=== PATIENT | female | born 1985 | race African-American/Black ===

== ENCOUNTER → 2016-08-04 | Emergency (ER) | payer OTHER ==
[~2016-08-04] VITALS: Ht 167.6 cm; Wt 72.6 kg
[~2016-08-04] MED LIST: ALBUTEROL SULF8.5 GM INH; BUSPAR10 MG ORAL; IBUPROFEN600 MG ORAL; LORazepam 0.5mg tab ORAL ONE; LORazepam 1mg tab ORAL ONE; NKM; PREDNISONE10 MG ORAL
[2016-08-04 12:29] VITALS: BP 101/67
--- NOTE | 2016-08-04 13:11 | Emergency Room Report ---
History of Present Illness General Chief Complaint: General Complaint Source: Patient Present Illness HPI 31 YO Female presents to the ED c/o SOB s/p smoking weed. pt. reports intermitted episodes x 1 week with cough and heightened anxiety. Denies nausea, vomiting, fevers, chills, history of cardiac disease, productive cough, neck pain or stiffness. reports hx of intermittent anxiety, not currently on medications. Denies CP, Palpitations, LOC, AMS, dizziness, Changes in Vision, Sensation, paresthesias, or a sudden severe headache. Allergies: Coded Allergies: No Known Allergies (Unverified , 07/29/13) Patient History Past Medical History: see triage record Past Surgical History: none Pertinent Family History: none Last Menstrual Period: 07/19/16 Now: No Immunizations: UTD Reviewed Nursing Documentation: PMH: Agreed, PSxH: Agreed Nursing Documentation-PMH Past Medical History: No Stated History Review of Systems All Other Systems: negative except mentioned in HPI Physical Exam Vital Signs Date Time Temp Pulse Resp B/P Pulse Ox O2 Delivery O2 Flow Rate FiO2 08/04/16 12:20 97.9 66 16 101/67 100 Room Air Sp02 EP Interpretation: reviewed, normal General Appearance: no apparent distress, alert, GCS 15, non-toxic Head: normocephalic, atraumatic Eyes: bilateral eye PERRL, bilateral eye normal inspection ENT: hearing grossly normal, normal pharynx, no angioedema, normal voice Neck: full range of motion, supple/symm/no masses Respiratory: chest non-tender, lungs clear, normal breath sounds, speaking full sentences, wheezing - scant expiratory wheezes Cardiovascular #1: regular rate, rhythm, no edema, normal capillary refill Musculoskeletal: back normal, gait/station normal, normal range of motion, non- tender Neurologic: alert, oriented x3, responsive, motor strength/tone normal, sensory intact, speech normal Psychiatric: judgement/insight normal, memory normal, mood/affect normal, anxious Skin: normal color, no rash, warm/dry, well hydrated Lymphatic: no adenopathy Medical Decision Making PA Attestation Dr. Pino is my supervising Physician whom patient management has been discussed with. Diagnostic Impression: Primary Impression: Stress reaction, emotional Additional Impression: Wheezing without diagnosis of asthma ER Course Pt. presents to the ED c/o SOB s/p smoking weed. pt. reports intermitted episodes x 1 week with cough and heightened anxiety. Ddx considered but are not limited to anxiety, [place], PE, asthma, Vital signs: are WNL, pt. is afebrile H&PE are most consistent with anxiety / emotional reaction and mild asthma CURES: report shows pt. has had several rx's in the last 6 months for small quantities of ativan. ORDERS: none required at this time, the diagnosis is clinical ED INTERVENTIONS: - 0.5 g Ativan PO - Gave pt. [facility] information. d/w pt. to follow up with pcp or [facility] for further evaluation and medication management of anxiety. DISCHARGE: At this time pt. is stable for d/c to home. Will provide printed patient care instructions, and any necessary prescriptions. Care plan and follow up instructions have been discussed with the patient prior to discharge. Last Vital Signs Date Time Temp Pulse Resp B/P Pulse Ox O2 Delivery O2 Flow Rate FiO2 08/04/16 12:29 97.9 16 101/67 100 Room Air 08/04/16 12:20 66 Disposition: HOME, SELF-CARE Condition: Stable Scripts Prednisone* (PREDNISONE*) 10 Mg Tablet 10 MG ORAL DAILY for 5 Days, #5 TAB 0 Refills Prov: Anita Giron 08/04/16 Albuterol Sulfate* (ALBUTEROL SULFATE MDI*) 8.5 Gm Hfa.aer.ad 2 PUFF INH Q3H, #1 INH 0 Refills Prov: Anita Giron.[email or web address] 08/04/16 Buspirone Hcl* (BUSPAR*) 10 Mg Tablet 10 MG ORAL THREE TIMES A DAY for 5 Days, #15 TAB 0 Refills Prov: Anita GironA. 08/04/16 Patient Instructions: Medical Screening Exam Additional Instructions: Take medications as directed. Follow up with PCP in 3-5 days Return sooner to ED if new symptoms occur, or current symptoms become worse. Review provided information for [facility] mental health urgent care - Please note that this Emergency Department Report was dictated using [employer] setter technology software, occasionally this can lead to erroneous entry secondary to interpretation by the dictation equipment. Anita Giron August 04, 2016 13:11
== END | disposition home or self-care (01) ==
LOC: EMR 13:30
DX: F43.9 Reaction to severe stress, unspecified (principal); R06.2 Wheezing; R05 Cough
CPT/HCPCS: 99284

== ENCOUNTER 2017-07-30 16:07 | Emergency (ER) | payer MEDICAID, OTHER ==
[~2017-07-30] VITALS: Ht 167.6 cm; Wt 77.1 kg
[~2017-07-30 16:07] MED LIST changes: -LORazepam 0.5mg tab ORAL ONE; -LORazepam 1mg tab ORAL ONE
[2017-07-30 16:10] VITALS: BP 132/78
--- NOTE | 2017-07-30 16:28 | Emergency Room Report ---
History of Present Illness General Chief Complaint: General Complaint Source: Patient Present Illness HPI 32-year-old female presents to the emergency department complaining of 8 out of 10 in severity localized right anterior chest pain times one year. Patient reports she has had multiple emergency department visits, specialist evaluations with toll service observer and cutter head sharpener. All who have which found no significant problems. Patient states that she has been treated with acid reflux medications as well as allergy medications recently for her symptoms. Patient states that she also has taken ibuprofen in the past. Patient reports that she notices her pain several times a day and most notably at nighttime when she is lying down. Patient denies lower extremity edema, personal or familial history of cardiac disease. She denies recent travel, or prolonged periods of being sedentary. Denies claudication, cough, fevers, chills. She states she works out regularly. Denies CP, Palpitations, LOC, AMS, dizziness, Changes in Vision, Sensation, paresthesias, or a sudden severe headache. Denies abdominal pain, nausea or vomiting. She reports previous history of marijuana smoking for which she states she has stopped. Patient denies asthma or history of bronchitis. Reports history of anxiety. Allergies: Coded Allergies: No Known Allergies (Unverified , 07/29/13) Patient History Past Medical History: see triage record Past Surgical History: none Pertinent Family History: none Last Menstrual Period: 07/25/17 Reviewed Nursing Documentation: PMH: Agreed; PSxH: Agreed Nursing Documentation-PMH Past Medical History: No Stated History Review of Systems All Other Systems: negative except mentioned in HPI Physical Exam Vital Signs Date Time Temp Pulse Resp B/P (MAP) Pulse Ox O2 Delivery O2 Flow Rate FiO2 07/30/17 16:12 98.2 82 18 135/86 99 Room Air 98.2 Sp02 EP Interpretation: reviewed, normal General Appearance: alert, GCS 15, non-toxic, mild distress - Pt. becomes very tearful and worried durring hPI and ROS questions. Head: normocephalic, atraumatic ENT: hearing grossly normal, normal voice Neck: full range of motion Respiratory: lungs clear, normal breath sounds, no respiratory distress, no accessory muscle use, no wheezing, speaking full sentences, other - some mild reproducible ttp to the anterior right chest. Cardiovascular #1: regular rate, rhythm, no edema, normal capillary refill, bradycardia Musculoskeletal: back normal, gait/station normal, normal range of motion, non- tender Neurologic: alert, oriented x3, responsive, motor strength/tone normal, sensory intact, speech normal, grossly normal Psychiatric: judgement/insight normal, anxious - Patient presents abnormally anxiousness, with many questions most of which are similar in nature. She verbalizes apprehension of being told she had normal exams by specialist as well as her PCP. Patient has history of anxiety Skin: normal color, warm/dry, well hydrated Medical Decision Making PA Attestation Dr. Marcano is my supervising Physician whom patient management has been discussed with. Diagnostic Impression: Primary Impression: Nonspecific chest pain Additional Impression: Right-sided chest wall pain ER Course 32-year-old female presents to the emergency department complaining of 8 out of 10 in severity localized right anterior chest pain times one year. Patient reports she has had multiple emergency department visits, specialist evaluations with toll service observer and cutter head sharpener. All who have which found no significant problems. Patient states that she has been treated with acid reflux medications as well as allergy medications recently for her symptoms. Patient states that she also has taken ibuprofen in the past. Patient reports that she notices her pain several times a day and most notably at nighttime when she is lying down. Patient denies lower extremity edema, personal or familial history of cardiac disease. She denies recent travel, or prolonged periods of being sedentary. Denies claudication, cough, fevers, chills. She states she works out regularly. Denies CP, Palpitations, LOC, AMS, dizziness, Changes in Vision, Sensation, paresthesias, or a sudden severe headache. Denies abdominal pain, nausea or vomiting. She reports previous history of marijuana smoking for which she states she has stopped. Patient denies asthma or history of bronchitis. Reports history of anxiety. Ddx considered but are not limited to [place], pneumonia, contusion, costochondritis , PE, ACS, Shoulder strain, Chest wall contusion. aortic dissection. Vital signs: are WNL, pt. is afebrile H&PE are most consistent with chest wall muscle etiology, or anxiety. I do not suspect emergent condition given PE and hx of present illness. No cardiac RF's. Vital signs are normal no evidence of tachycardia or decreased oxygen saturation. Lungs are clear bilaterally some mild reproducibility to the anterior chest tenderness ORDERS: - EK BPm NSR CXR: Unremarkable ED INTERVENTIONS: - Ativan PO -Toradol IM --I do not identify an emergent condition at this time. With current presentation, pt. is stable for close outpatient follow up and conservative treatment. D/w pt. to return promptly to ED with worsening or new symptoms.- Pt. (and or responsible libertarian) verbalizes' understanding and agreement with proposed treatment plan.proposed treatment plan. DISCHARGE: At this time pt. is stable for d/c to home. Will provide printed patient care instructions, and any necessary prescriptions. Care plan and follow up instructions have been discussed with the patient prior to discharge. EKG Diagnostic Results EP Interpretation: Dr. Marcano Rate: bradycardiac Rhythm: NSR ST Segments: no acute changes ASA given to the pt in ED: No PA Scribe Text This Interpretation was scribed by ANA Giron. Chest X-Ray Diagnostic Results Chest X-Ray Diagnostic Results : Chest X-Ray Ordered: Yes # of Views/Limited/Complete: 1 View Indication: Chest Pain PA Xray: Interpretation reviewed, by supervising MD, and agrees with findings. Interpretation: no consolidation, no effusion, no pneumothorax, no acute cardiopulmonary disease Impression: No acute disease Electronically Signed by: Anita Giron PA-C Last Vital Signs Date Time Temp Pulse Resp B/P (MAP) Pulse Ox O2 Delivery O2 Flow Rate FiO2 07/30/17 16:12 98.2 82 18 135/86 99 Room Air 98.2 Disposition: HOME, SELF-CARE Condition: Stable Scripts Methocarbamol* (ROBAXIN-750*) 750 Mg Tablet 750 MG PO QID, #28 TAB 0 Refills Prov: Anita Giron 07/30/17 Naproxen* (NAPROXEN*) 500 Mg Tablet 500 MG ORAL TWICE A DAY, #20 TAB 0 Refills Prov: Anita Giron 07/30/17 Departure Forms: Return to Work Return to Work Date: Jul 31, 2017 Work Restrictions: No Heavy Lifting Other Restrictions: light duty and limited use of right arm x 1 week. Return to Full Activity: August 07, 2017 Patient Instructions: Chest Wall Pain, Nonspecific Chest Pain, [id number] Additional Instructions: Take medications as directed. Follow up with a Primary Care Provider in 3-5 days, even if your symptoms have resolved. --Please review list of primary care clinics, if you do not already have a primary care provider Return sooner to ED if new symptoms occur, or current symptoms become worse. - Please note that this Emergency Department Report was dictated using [employer] production technician technology software, occasionally this can lead to erroneous entry secondary to interpretation by the dictation equipment. Anita Giron Jul 30, 2017 16:28
[2017-07-30] MEDS ORDERED: LORazepam 1mg tab ORAL ONE (17:00)
[2017-07-30] MEDS ORDERED: Ketorolac 60mg Inj IM ONE (17:00)
[2017-07-30] MEDS ORDERED: NAPROXEN500 M2 ORAL (17:18)
[2017-07-30] MEDS ORDERED: ROBAXIN-750750 MG PO (17:18)
[2017-07-30 17:53] VITALS: BP 128/72
--- NOTE | 2017-07-31 08:51 | Diagnostic Imaging Report ---
Indication: Pain Technique: One view of the chest Comparison: none Findings: Lungs and pleural spaces are clear. Heart size is normal Impression: No acute process
--- NOTE | 2017-08-02 17:50 | Cardiology Report ---
APPROVED REPORT EKG Measurement Heart [id number] Normal sinus rhythm with sinus arrhythmia Normal ECG
== END 2017-07-30 17:55 | disposition home or self-care (01) ==
LOC: EMR 16:30
DX: R07.89 Other chest pain (principal)
CPT/HCPCS: 71045; 93005; 96372; 99284